=== PATIENT | male | born 1955 | race Caucasian/White ===

== ENCOUNTER → 2016-12-17 | Outpatient (CLI) | payer BC ==
[~2016-12-17] MED LIST: ALLEGRA PO; CENTRUM PO; DIOVAN HCT 160-1 TAB PO; FLAGYL PO; LEVAQUIN PO; PATIENT'S PHARMACY; PROTONIX PO; SINGULAIR PO; SYNTHROID PO; VICODIN 5/500 T1 TAB PO; ZYLOPRIM PO
--- NOTE | ~2016-12-17 | CT6 ---
[facility] A Service of [facility] [place] & [facility] RADIOLOGY TEXT RESULTS PATIENT: ANDRE CASTILLO [facility] UN[facility] #: [id number] AGE: [address]: Miranda Pace APRN SEX: M ORDER DR: [id number] [facility]. [place], [place] [address] [id number] MR#: [id number] Acc #: [id number] NAME: ANDRE CASTILLO : 1955 SEX: M STUDY DATE/TIME: 12/17/2016 14:33 UNIT: [facility] ROOM: STUDY DESCRIPTION: CT Abdomen WWo Cont Attending Physician: Miranda Pace Aprn Referring Physician: Miranda Pace Aprn Ordering Physician: Miranda Pace Aprn Primary Care Physician: Bravo Delgado M.D. MEDICAL IMAGING REPORT This report is preliminary unless electronic signature is present EXAM CT abdomen without with contrast INDICATION Cirrhosis. Patient was diagnosed 2 years ago. Patient currently has no complaints. COMPARISON STUDIES Patient's most recent CT was in June 2013. There was an ultrasound performed 10/08/16. It was technically limited due to the patient's body habitus. TECHNIQUE This CT exam was performed with one or more of the following radiation dose reduction techniques: automatic exposure control, adjustment of mA and/or kV according to patient size, and iterative reconstruction. Axial precontrast imaging was obtained through the abdomen. This was followed by arterial, portal venous and venous phase imaging through the abdomen and 5 minute delayed phase imaging through the abdomen and pelvis. FINDINGS Images through the lung bases are clear. No noncalcified pulmonary nodules or masses are identified. The patient's cirrhotic morphology to the liver is much more evident actually on ultrasound images as the contour nodularity is more apparent on that exam. I do not see any focal enhancing lesions or evidence of washout to suggest hepatic cellular carcinoma. He does have splenomegaly with the spleen measuring up to 15.7 cm in craniocaudal dimensions. 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 Proximal small bowel is within normal limits as are the adrenal glands. [facility] A Service of [facility] [place] & [facility] RADIOLOGY TEXT RESULTS PATIENT: ANDRE CASTILLO LOCATION: [facility] : 55 UNIT #: [id number] AGE: [address]: Miranda Pace APRN SEX: M ORDER DR: Pancreas is atrophic. Multiple gallstones are seen within the gallbladder. This patient has nonobstructing stones seen in the inferior pole of the right kidney. There is poor timing of the contrast bolus. This really limits evaluation of vasculature, but I think probably that the portal vein and splenic vein are patent. Left renal cyst are again noted, two of which appear to be a hyperdense cysts, but again do not show any significant enhancement. No free fluid or adenopathy is seen within the abdomen. Review of bony windows does not demonstrate any aggressive osseous abnormalities. Visualized portions of the GI tract appear normal IMPRESSION 1. Mildly cirrhotic morphology to the liver with evidence of portal hypertension as the patient does have splenomegaly with the spleen measuring 15.7 cm. No ascites is seen, and no large gastroesophageal varices are identified. Evaluation of hepatic vasculature is limited due to poor timing of the contrast bolus, but portal vein is suspected to be patent. 2. Suspected left renal cyst. No significant enhancement is seen within these lesions, although some of them appear larger than on the prior study from June of 2013, attention to them on subsequent followup exams is suggested. Ultrasound is felt to be of limited utility in assessment of the patient's left kidney due to his body habitus. 3. Nonobstructing stone identified within the inferior pole of the right kidney. 4. Cholelithiasis. 5. No focal hepatic lesions are seen to suggest hepatocellular carcinoma. Dictated by... Tita Espinoza M.D. THIS IS AN ELECTRONICALLY VERIFIED REPORT Tita Espinoza M.D. at 12/18/2016 5:33 PM AFF/ea TD: 12/18/2016 12:49 JOB #: [id number] MEDICAL IMAGING REPORT Page 1 of 1 COPY
[2016-12-17 15:26] LABS: POC - CREATININE 1.16 mg/dL (0.64-1.27); POC - GFR >60.0 mL/min (>60)
== END | disposition home or self-care (01) ==
LOC: CCAT 12:15
PROVIDERS: Nurse Practitioner
DX: R93.2 Abnormal findings on diagnostic imaging of liver and biliary tract (principal); K74.60 Unspecified cirrhosis of liver; K76.6 Portal hypertension; R16.1 Splenomegaly, not elsewhere classified; N20.0 Calculus of kidney; K80.20 Calculus of gallbladder without cholecystitis without obstruction
CPT/HCPCS: 74170; 82565; Q9967